=== PATIENT | female | born 1985 | race Caucasian/White ===

== ENCOUNTER 2020-01-17 11:30 | Outpatient (CLI) | payer BC, SELFPAY ==
[2020-01-17 12:52] LABS: Hematocrit 32.7 % (37.0-47.0); Mean Corpuscular HGB Conc 30.6 g/dl (32-36); Mean Corpuscular Hemoglobin 25.6 pg (26-34); Mean Corpuscular Volume 83.8 fl (80-100); Mean Platelet Volume 9.5 fl (7.4-10.4); Platelet Count Result 347 k/mm3 (150-375)
[2020-01-17 13:07] LABS: Alanine Aminotransferase 10 U/L (4-35); Albumin Level 3.5 g/dL (3.5-5.1); Alkaline Phosphatase 88 U/L (38-126); Aspartate Amino Transferase 16 U/L (14-36); Bilirubin,Total 0.2 mg/dL (0.2-1.3); Blood Urea Nitrogen 5 mg/dL (7-17); Calcium 8.2 mg/dL (8.4-10.2); Carbon Dioxide 21 mmol/L (22-30); Chloride 107 mmol/L (98-107); Estimated Glomerular Filt Rate > 60; Glucose 91 mg/dL (65-105); Lactate Dehydrogenase 268 U/L (313-618); Potassium 3.6 mmol/L (3.4-5.0); Sodium 136 mmol/L (137-145); Uric Acid 4.4 mg/dL (2.5-7.5)
[2020-01-17 13:15] LABS: Partial Thromboplastin Time 29.4 SECONDS (22.3-36.8)
== END 2020-01-17 11:31 | disposition home or self-care (01) ==
LOC: ANHLAB 11:32
PROVIDERS: PCP Internal Medicine; Visit Provider Nurse Practitioner
DX: O13.9 Gestational [pregnancy-induced] hypertension without significant proteinuria, unspecified trimester (principal)
CPT/HCPCS: 36415; 80053; 83615; 84550; 85027; 85730

== ENCOUNTER 2020-01-21 11:37 | Outpatient (CLI) | payer BC, SELFPAY ==
[2020-01-21 12:01] LABS: Collection Time Urine 24 HOURS
[2020-01-21 12:22] LABS: Creatinine Urine 83.8 mg/dL; Patient Weight 200 Lbs; Total Protein Urine Random 13 mg/dL
[2020-01-21 12:40] LABS: Estimated Glomerular Filt Rate > 60
[2020-01-21 12:45] LABS: Creatinine Clearance Urine 199.8 ml/min (75-125); Total Protein Urine 24 Hr 208 MG/DAY (28-141); Total Volume 24 Hour Urine 1600 ml
== END 2020-01-21 11:38 | disposition home or self-care (01) ==
PROVIDERS: PCP Internal Medicine; Visit Provider Nurse Practitioner
DX: O13.9 Gestational [pregnancy-induced] hypertension without significant proteinuria, unspecified trimester (principal)
CPT/HCPCS: 36415; 81050; 82565; 82575; 84156

== ENCOUNTER 2020-04-14 14:53 | Outpatient (RCR) | payer BC, SELFPAY ==
[2020-03-17 17:20] VITALS: BP 115/61; PULSE 91
[2020-03-31 09:20] VITALS: BP 115/61; PULSE 91
[2020-04-07 10:14] VITALS: BP 139/75; PULSE 87
[2020-04-14 16:01] VITALS: BP 128/71; PULSE 81
== END 2020-04-21 11:19 | disposition home or self-care (01) ==
LOC: ANHOBOP 14:53
PROVIDERS: PCP Internal Medicine; Visit Provider Obstetrics & Gynecology Gynecology
DX: O16.3 Unspecified maternal hypertension, third trimester (principal); O24.419 Gestational diabetes mellitus in pregnancy, unspecified control; Z3A.35 35 weeks gestation of pregnancy; Z3A.36 36 weeks gestation of pregnancy; Z3A.37 37 weeks gestation of pregnancy; Z3A.38 38 weeks gestation of pregnancy; Z3A.39 39 weeks gestation of pregnancy
CPT/HCPCS: 59025

== ENCOUNTER 2020-04-20 13:06 | Outpatient (CLI) | payer BC, SELFPAY ==
[2020-04-20 13:26] LABS: Basophils Percent Auto 0.1 % (0.2-1.2); Eosinophils Absolute Auto 0.1 K/mm3 (0-0.3); Eosinophils Percent Auto 0.7 % (0-4.4); Hemoglobin 11.4 g/dL (12.0-15.0); Immature Granulocyte Absolute 0.02 K/mm3 (0.00-0.031); Immature Granulocyte Percent A 0.2 % (0-0.5); Lymphocytes Absolute Auto 1.49 K/mm3 (0.9-3.2); Lymphocytes Percent Auto 17.8 % (18.3-44.2); Mean Corpuscular HGB Conc 31.7 g/dl (32-36); Mean Corpuscular Hemoglobin 26.3 pg (26-34); Mean Corpuscular Volume 82.9 fl (80-100); Monocytes Absolute Auto 0.4 K/mm3 (0.1-0.6); Neutrophils Absolute Auto 6.4 K/mm3 (1.3-6.7); Neutrophils Percent Auto 76.2 % (45.5-73.1); Platelet Count Result 276 k/mm3 (150-375); Red Blood Count 4.34 M/mm3 (4.2-5.4); Red Cell Distribution Width 16.1 % (11.5-14.5); White Blood Count 8.4 K/mm3 (4.5-10.0)
[2020-04-21 09:14] LABS: Rapid Plasma Reagin Non-Reactive (NonReactive)
== END 2020-04-20 13:07 | disposition home or self-care (01) ==
LOC: ANHOBOP 13:09
PROVIDERS: PCP Internal Medicine; Visit Provider Obstetrics & Gynecology Gynecology
DX: Z34.93 Encounter for supervision of normal pregnancy, unspecified, third trimester (principal); Z3A.00 Weeks of gestation of pregnancy not specified
CPT/HCPCS: 36415; 85025; 86592; 86850; 86900; 86901

== ENCOUNTER 2020-04-21 09:56 | Inpatient (IN) | payer BC, SELFPAY ==
[2020-04-21] VITALS (48 sets, daily range): BP systolic 102–138; BP diastolic 58–78; PULSE 69–89; RESP 13–18; TEMP 36.5–37.2; O2SAT 95–100; BMI 32.1
--- NOTE | 2020-04-21 10:40 | PM.IMHP ---
H&P: HPI History of Present Illness Chief complaint: Section Narrative: Estelle Alexander is a 34 year old female at 39 wks here for repeat csection. Pregancy conceived with IVF with . Patient complicated by GDMA2 and CHTN. Due to AMA she had MFM u/s for anatomy which was normal. They followed growth and fluid as well and has been elevated growth at 85%. Patient declines trial of labor. labs: B+, RPR -, HBSAg -, Rubella Immune, HIV -, GBS -. [facility] Past Medical History Medical History (Updated 04/21/20 @ 10:46 by Tiara Lay MD) Migraine PCOS (polycystic ovarian syndrome) Social History Social History (Updated 04/14/20 @ 15:21 by Sandra Welsh RN) Smoking status: Never smoker Second hand tobacco smoke exposure: No Alcohol intake: never Substance use: never Substance use type: does not use Gender identity (if verbalized by the patient): Female Sexual Orientation (if Verbalized by the Patient): Straight or Heterosexual Spiritual care concerns: No Agree to blood products: Yes Meds Home Medications and Allergies Allergies Allergy/AdvReac Type Severity Reaction Status Date / Time Penicillins Allergy Unknown Rash Verified 04/14/20 15:19 Exam Const: General: healthy appearing and alert Orientation/consciousness: patient oriented x3 Resp: Effort & Inspection: normal respiratory effort Auscultation: clear to auscultation bilaterally Cardio: Rate: regular rate Rhythm: regular rhythm GI: GI Palp: Yes Soft to palpation, No Tenderness to palpation present (GI) and No Palpable mass present : External Female Exam: normal external appearance Speculum Exam - Vagina: normal appearance of the vagina and normal vaginal discharge Speculum Exam - Cervix: normal appearance of the cervix Bimanual exam- vagina & uterus: uterine size normal and consistency normal Bimanual Exam- Adnexa, other: normal adnexae and No adnexal tenderness Neuro: General: patient oriented x3 Assessment and Plan Assessment and plan (1) 39 weeks gestation of : Code(s): Z3A.39 - 39 weeks gestation of Status: Acute Assessment and Plan: Plan repeat LTCS (2) S/P : Code(s): Z98.891 - History of uterine scar from previous surgery Status: Acute (3) HTN in , chronic: Code(s): O10.919 - Unspecified pre-existing hypertension complicating , unspecified trimester Status: Acute (4) GDM, class A2: Code(s): O24.419 - Gestational diabetes mellitus in , unspecified control Status: Acute
[2020-04-21] MEDS: LACTATED RINGERS 1,000 ML 125 ML IV CONT (10:48)
--- NOTE | 2020-04-21 10:59 | WPDANESEPPF ---
Anes - Initial Pre Proc Eval Procedure: Operation Date: 04/21/20 12:00 Proposed Procedures p Repeat Section - Tiara Lay MD Date/Time: 04/21/20 10:59 Surgeon: Tiara Lay MD Pre Op Diagnosis: Section Patient Data Age: 34 Gender: F Height: Weight: Allergies Allergy/AdvReac Type Severity Reaction Status Date / Time Penicillins Allergy Unknown Rash Verified 04/14/20 15:19 Patient hx anesthesia problems: none Family hx anesthesia problems: none PMFSH Past Medical History Medical History (Updated 04/21/20 @ 10:46 by Tiara Lay MD) Migraine PCOS (polycystic ovarian syndrome) Social History Social History (Updated 04/14/20 @ 15:21 by Sandra Welsh RN) Smoking status: Never smoker Second hand tobacco smoke exposure: No Alcohol intake: never Substance use: never Substance use type: does not use Gender identity (if verbalized by the patient): Female Sexual Orientation (if Verbalized by the Patient): Straight or Heterosexual Spiritual care concerns: No Agree to blood products: Yes Anes - Eval Final PreProcedure Day of Procedure 04/21/20 10:59 Patient weight: overweight Heart: regular rate and rhythm Lungs: clear to auscultation and normal air movement Airway: Mallampati scale class II Neurological: alert and oriented Last oral intake: >/= 8 hours ASA classification: II Emergent: no Anesthetic plan: proceed Anesthesia type and monitoring: regional spinal Informed Consent: The patient's anesthetic plan and its attendant risks and benefits were discussed with the patient/family/POA. Questions were solicited and answers provided to the satisfaction of the patient/family/POA.
--- NOTE | 2020-04-21 11:03 | LDADM ---
This patient, Estelle Alexander, was admitted to OB Post 115 on 04/21/20 at 09:56. Plans for labor, pain management and were discussed with patient. Patient/family oriented to hospital policies and general routines including ID bracelet, bed and alarms, visiting hours, pain management, procedures, bathroom and other care routines, personal items, smoking policy, room service/diet and guest tray routines, infant security routines, and visiting hours. Patient/Family are encouraged to report perceived risks to care and to ask questions if they do not understand what they are told or what they should do. See OBIX for further documentation.
[2020-04-21] MEDS: LACTATED RINGERS 1,000 ML 999 ML IV CONT (11:34)
[2020-04-21] MEDS: ceFAZolin 2 GM/D5W 50 ML 2 GM/50 ML BAG IVPB (11:46)
--- NOTE | 2020-04-21 12:39 | PM.OP ---
Procedure Note - Brief Procedure Note - Brief Date of procedure: 04/21/20 Pre-op diagnosis: Section IUP 39 wks CHTN GDMA2 Prior csection Post-op diagnosis: same Procedure performed: Repeat LTCS Anesthesia: spinal Surgeon: Tiara Lay MD Estimated blood loss (mL): 205 Drains: Yes (braden) Packing: No Pathology: none sent Complications: No immediate complications Condition: stable Disposition: PACU Findings: nuchal cord x 1; female weighing 7#14oz with 7/9 Apgars;normal appearing tubes, ovaries, and uterus
--- NOTE | 2020-04-21 12:41 | PM.OBDSVD ---
DS: Admitting Diagnosis Admitting Diagnosis Admitting Diagnosis: 39 weeks gestation of CHTN GDMA2 Prior Csection OB - DS: Summary OB Procedures : NST and Ultrasound OB Procedures Intrapartum: OB Procedures: : None Peripartum Data Infant Delivery Method: Section Procedures: Procedures Operation Date: 04/21/20 12:00 <No data on this case meets the specified criteria> complications: none Status at Discharge Functional status at discharge: independent ambulation Overall status at discharge: patient is progressing back to baseline Time Spent with Patient Time attestation: Total time spent providing and/or coordinating discharge services: Discharge Plan Discharge Attending physician on discharge: Tiara Lay Discharging Clinician: Tiara Lay Anticipated Discharge Date/Time: 04/24/20 07:48 Patient Disposition: Home, Self-Care Activity: may shower, may drive after 2 weeks and pelvic rest Diet: regular Wound Care Instructions: incision open to air Patient Instructions: Antibiotic Form Stand Alone Forms: General Discharge Information Follow-up/Referrals: Tiara Lay MD [Physician] - 1 Week Discharge Medications: New ibuprofen 600 mg Tablet 600 mg PO Q6H PRN (Reason: Cramping) Qty: 30 RF: 0 Continued metformin 500 mg tablet extended release 24 hr 500 mg PO RF: 0 No Action Humulin N NPH U-100 Insulin 100 unit/mL suspension 12 unit SUBCUT HS RF: 0 Date of admission: 04/21/20 09:56 Primary Care Provider: Avelino Goodwin Admitting Provider: Tiara Lay Attending physician on admission: Tiara Lay Condition: Stable
[2020-04-21] MEDS: OXYTOCIN 30 UNITS/NS 500 ML 30 UNITS/500 ML BAG 125 UNITS (14:38)
--- NOTE | 2020-04-21 14:53 | OP_ITS ---
DATE OF PROCEDURE: 04/21/2020 PREOPERATIVE DIAGNOSES: 1. Previous section, intrauterine at 39 weeks. 2. Gestational diabetes, insulin requiring. 3. Chronic hypertension. POSTOPERATIVE DIAGNOSES: 1. Previous section, intrauterine at 39 weeks. 2. Gestational diabetes, insulin requiring. 3. Chronic hypertension. PROCEDURE: Repeat low-transverse section. ANESTHESIA: Spinal. FINDINGS: Female , 7 pounds 14 ounces with Apgars of 7 at 1 minute 9 at 5 minutes. There was a nuchal cord x1. Tubes, ovaries, and uterus appeared grossly normal. ESTIMATED BLOOD LOSS: 205 cc. PATHOLOGY: None. DESCRIPTION OF PROCEDURE: The patient was taken to the operating room, placed under anesthesia, prepped and draped in usual sterile fashion in the dorsal supine position with a leftward tilt. Once anesthesia was deemed adequate, she was prepped and draped in the usual sterile fashion. A Pfannenstiel skin incision was made through the prior incision and carried down to the underlying layer of fascia, which was nicked in the midline and extended laterally using Calabrese scissors. Ochsner was used to tent the fascia, which was then dissected off using sharp dissection due to dense adhesions. The rectus muscles were in the midline. The peritoneum was entered during this process. The peritoneum was extended with blunt traction. The abdomen was palpated, no scar tissue was noted. The Oswaldo O retractor was placed. The vesicouterine peritoneum was tented, entered with Metzenbaums, extended laterally. The bladder flap created digitally. The lower uterine segment was incised in a transverse fashion with a scalpel and extended laterally using blunt traction. Membranes were ruptured. Clear fluid was noted. The 's head was delivered through the incision while the retail loan originator assistant applied fundal pressure. The remainder of the infant is delivered. The cord was de-tangled, clamped, and cut. The was handed to the waiting nursery nurse. The placenta was removed using manual traction. The uterus was cleared of all clots and debris. The uterine incision was closed using 0 Monocryl in a running locked fashion. Same suture was used to imbricate. Good hemostasis was noted. The cul-de-sac and gutters were irrigated. The incision was again inspected and noted to be hemostatic. The Oswaldo O retractor was removed. The fascia was closed using 0 Vicryl in a running fashion. Subcutaneous tissues were irrigated and made hemostatic using Bovie cautery. Skin was closed using 4-0 Vicryl in a subcuticular fashion. DermaFlex was placed over the incision. The patient was taken to Recovery in stable condition. Oly I MT: Reginaldo
[2020-04-21] MEDS: KETOROLAC 30 MG/ML VIAL (*BKC) IV PUSH ×2 (15:34→22:43)
--- NOTE | 2020-04-21 16:37 | OBPPTRN ---
Patient transferred to post room #292 via stretcher. Support person present. Oriented to unit, room, information board, rooming in, admission packet and security measures. Patient verbalizes understanding.
[2020-04-21] MEDS: DEXTROSE 5%/0.45% SOD CHL 1,000 ML 125 ML IV CONT (19:04)
[2020-04-22] MEDS: KCL 20 MEQ/D5/0.45% SOD CHL 1,000 ML 125 ML IV CONT (03:02)
[2020-04-22 04:15] VITALS: BP 127/86; PULSE 79; RESP 18; TEMP 37.2; O2SAT 100
[2020-04-22 04:50] VITALS: BP 126/58; PULSE 73; RESP 18; TEMP 37.1; O2SAT 98
[2020-04-22 05:43] LABS: Basophils Percent Auto 0.3 % (0.2-1.2); Eosinophils Absolute Auto 0.1 K/mm3 (0-0.3); Hematocrit 30.3 % (37.0-47.0); Hemoglobin 9.7 g/dL (12.0-15.0); Immature Granulocyte Absolute 0.02 K/mm3 (0.00-0.031); Immature Granulocyte Percent A 0.3 % (0-0.5); Lymphocytes Absolute Auto 1.79 K/mm3 (0.9-3.2); Mean Corpuscular Hemoglobin 26.7 pg (26-34); Mean Corpuscular Volume 83.5 fl (80-100); Mean Platelet Volume 10.2 fl (7.4-10.4); Monocytes Absolute Auto 0.4 K/mm3 (0.1-0.6); Neutrophils Absolute Auto 4.9 K/mm3 (1.3-6.7); Neutrophils Percent Auto 68.4 % (45.5-73.1); Platelet Count Result 234 k/mm3 (150-375); Red Blood Count 3.63 M/mm3 (4.2-5.4); Red Cell Distribution Width 16.3 % (11.5-14.5); White Blood Count 7.2 K/mm3 (4.5-10.0)
--- NOTE | 2020-04-22 07:47 | P.PNOB_ITS ---
OB - PN: Subj Subjective Date/time seen: 04/22/20 07:47 Patient comments: no complaints and pain well controlled baby status: doing well OB - PN: Obj Data Labs CBC & Chem 7: 04/22/20 04:42 Labs: Laboratory Results - last 24 hr 04/22/20 04:42 WBC 7.2 RBC 3.63 L Hgb 9.7 L Hct 30.3 L MCV 83.5 MCH 26.7 MCHC 32.0 RDW 16.3 H Plt Count 234 MPV 10.2 Immature Gran % (Auto) 0.3 Neut % (Auto) 68.4 Lymph % (Auto) 25.0 Dickenson % (Auto) 5.0 Eos % (Auto) 1.0 Baso % (Auto) 0.3 Lymph # (Auto) 1.79 Dickenson # (Auto) 0.4 Eos # (Auto) 0.1 Baso # (Auto) 0.0 Abs Immat Gran (auto) 0.02 Absolute Neuts (auto) 4.9 Absolute Nucleated RBC 0.0 Nucleated RBC % 0.0 OB - PN A/P Assessment and Plan (1) delivery delivered: Code(s): O82 - Encounter for delivery without indication Status: Acute Assessment and Plan: Doing well. Continue care. Time Spent With Patient Time: Total time spent is greater than 50% in coordination of care (as documented) at patient's floor/unit and/or counseling patient: Exam : Bimanual exam- vagina & uterus: other (Uterus firm, nt @U) Other: inc c/d/i
--- NOTE | 2020-04-22 07:56 | WPDANLDNPN2 ---
Anes-Prog Note L&D-Neuraxial Date/Time: 04/22/20 07:56 Neuraxial medications: intrathecal PF morphine Opiod-related complaints: none Patient feedback: Patient satisfied with post-operative pain management.
--- NOTE | 2020-04-22 07:56 | WPDANLDPN2 ---
Anes-Prog Note L&D Date/Time: 04/22/20 07:56 Comfortable throughout: section Neuraxial method: spinal Epidural/Spinal procedure site: clean & non-tender Neuro status: Neuro function grossly intact. Cardiovascular status: normal Respiratory status: normal Airway patency: baseline Mental status: baseline Post-Op hydration status: normal Vital Signs: Last Vital Signs Temp 37.1 C 04/22/20 04:50 Pulse 73 04/22/20 04:50 Resp 18 04/22/20 04:50 BP 126/58 L 04/22/20 04:50 Pulse Ox 98 04/22/20 04:50 I/O: Intake & Output 04/21/20 04/21/20 04/22/20 15:59 23:59 07:59 Intake Total 2050 310 440 Output Total 915 288 4884 Balance 1624 85 -985 Post-procedural complaints: none Patient feedback: Patient satisfied with anesthetic care.
[2020-04-22 08:50] VITALS: BP 119/69; PULSE 75; RESP 16; TEMP 37.3; O2SAT 99
[2020-04-22] MEDS: metFORMIN HCL XR 500 MG TAB.SR.24H PO ×2 (09:11→18:46)
[2020-04-22] MEDS: MULTIVIT/MIN/PREN/FOL AC/IRON TABLET 1 TAB PO (09:11)
[2020-04-22] MEDS: POLYSACCHARIDE IRON COMPLEX 150 MG CAPSULE PO ×2 (09:13→18:46)
[2020-04-22] MEDS: LANOLIN (LANSINOH) 7.5 GM CREAM 1 APPLIC TOPICAL (09:14)
[2020-04-22] MEDS: DOCUSATE SODIUM 100 MG CAPSULE PO ×2 (09:14→18:46)
--- NOTE | 2020-04-22 11:20 | PC.NURSE ---
Consulted with patient, mother reports infant fed well during the night. Mother put to breast independently, was latched deeply, nursing eagerly with steady draws and frequent swallowing. Reviewed signs of a correct latch, effective nursing and suck swallow ratio. Infant was able to maintain latch without discomfort to mother. Nipple care reviewed. Suggested to stimulate during entire feeding to keep infant awake and feeding effectively for increased intake and assist maintaining deep latch. Instructed mother to call out for RN assistance if she is unable to latch infant for feeding or she has discomfort with nursing. Instructed feeding should be initiated three hours from start of last feeding or if feeding cues are noted before. Mother voiced understanding of information shared.
[2020-04-22 11:25] VITALS: BP 125/72; PULSE 76; RESP 18; TEMP 37.4; O2SAT 93
[2020-04-22] MEDS: IBUPROFEN 600 MG TABLET PO (14:22)
[2020-04-22 20:30] VITALS: BP 135/65; PULSE 71; RESP 18; TEMP 36.9; O2SAT 99
[2020-04-23] MEDS: IBUPROFEN 600 MG TABLET PO ×3 (00:39→17:08)
[2020-04-23] MEDS: DOCUSATE SODIUM 100 MG CAPSULE PO ×3 (09:14→17:08)
[2020-04-23] MEDS: MULTIVIT/MIN/PREN/FOL AC/IRON TABLET 1 TAB PO (09:14)
[2020-04-23] MEDS: POLYSACCHARIDE IRON COMPLEX 150 MG CAPSULE PO ×2 (09:15→17:08)
[2020-04-23] MEDS: metFORMIN HCL XR 500 MG TAB.SR.24H PO ×2 (09:15→17:08)
[2020-04-23 09:20] VITALS: BP 130/71; PULSE 70; RESP 16; TEMP 37.1; O2SAT 100
--- NOTE | 2020-04-23 09:43 | PM.OBPNVD ---
OB - PN: Subj Subjective Date/time seen: 04/23/20 09:43 doing well no complaints OB - PN: Obj Data Labs CBC & Chem 7: 04/22/20 04:42 OB - PN A/P Assessment and Plan (1) delivery delivered: Code(s): O82 - Encounter for delivery without indication Status: Acute Assessment and Plan: continue with pp care. Time Spent With Patient Time: Total time spent is greater than 50% in coordination of care (as documented) at patient's floor/unit and/or counseling patient: Exam GI: Other: incsion clean and dry
--- NOTE | 2020-04-23 12:30 | PC.NURSE ---
Upon entering mother has to breast using correct positioning/alignment in cross cradle, Infant was latched slightly shallow. Mother denies discomfort with feeding. Discussed deep latch may increase infant intake. Infant nursed eagerly, with steady draws and frequent swallowing noted. Reviewed signs of a correct latch, effective nursing and suck swallow ratio. Infant was able to maintain latch without discomfort to mother. Nipple care reviewed. Mother stimulated infant when pausing noted. Instructed mother to call out for RN assistance if she is unable to latch infant for feeding or she has discomfort with nursing. Instructed feeding should be initiated three hours from start of last feeding or if feeding cues are noted before. Mother voiced understanding of information shared.
[2020-04-23 20:30] VITALS: BP 133/72; PULSE 70; RESP 18; TEMP 36.6; O2SAT 98
[2020-04-24] MEDS: IBUPROFEN 600 MG TABLET PO (04:14)
--- NOTE | 2020-04-24 07:47 | P.PNOB_ITS ---
OB - PN: Subj Subjective Date/time seen: 04/24/20 07:47 Patient comments: no complaints, pain well controlled and tolerating diet [place] baby status: doing well OB - PN: Obj Data Labs CBC & Chem 7: 04/22/20 04:42 OB - PN A/P Plan day: 3 Plan: routine care and discharge home Time Spent With Patient Time: Total time spent is greater than 50% in coordination of care (as documented) at patient's floor/unit and/or counseling patient: Exam GI: Other: Inc c/d/i : Bimanual exam- vagina & uterus: other (Uterus firm, nt @U)
[2020-04-24] MEDS: metFORMIN HCL XR 500 MG TAB.SR.24H PO (08:26)
[2020-04-24] MEDS: POLYSACCHARIDE IRON COMPLEX 150 MG CAPSULE PO (08:26)
[2020-04-24] MEDS: MEASLES,MUMPS,RUBELLA VACCINE 0.5 ML VIAL SUB-Q (08:27)
[2020-04-24] MEDS: DOCUSATE SODIUM 100 MG CAPSULE PO (08:27)
[2020-04-24] MEDS: MULTIVIT/MIN/PREN/FOL AC/IRON TABLET 1 TAB PO (08:27)
[2020-04-24 09:05] VITALS: BP 127/81; PULSE 64; RESP 16; TEMP 37.4; O2SAT 99
--- NOTE | 2020-04-24 09:30 | PC.NURSE ---
Mother is able to independently latch infant with appropriate positioning/alignment. She denies any nipple discomfort, is feeding as required and waking to feed if needed. has had at least 8 effective feedings in the past 24 hours, and is currently meeting outcomes for weight at 9%, output, jaundice and feeding frequencies. Advised to stimulate while at breast for increased intake due to weight. Discussed supplementation if infant does not have required output or goes past 5 hours without feeding. Mother states she feels confident to continue effective at home. Reviewed transition to breast milk, signs of adequate intake, and engorgement/relief. Instructed to call ICP if intake/output less than required. Reviewed regular medications mother is taking. Information provided per Kimberlee. Reviewed community resources on the [facility] website and in the Mom/Baby guide. Information on outpatient services provided. Mother has no further questions at this time.
[2020-04-26 11:23] VITALS: BP 138/78; PULSE 87; RESP 22; TEMP 36.3; O2SAT 100
== END 2020-04-24 14:04 | disposition home or self-care (01) | DRG 787 ==
LOC: ANHOBPP 12:43 → ANHOB2 15:37
PROVIDERS: Admitting Provider Obstetrics & Gynecology Gynecology; PCP Internal Medicine; Visit Provider Obstetrics & Gynecology Gynecology
PROC: 10D00Z1 Extraction of Products of Conception, Low, Open Approach (ICD-10-PCS; CPT 59514; principal; 2020-04-21 12:00)
DX: O34.211 Maternal care for low transverse scar from previous cesarean delivery (principal); O10.92 Unspecified pre-existing hypertension complicating childbirth; Z37.0 Single live birth; Z3A.39 39 weeks gestation of pregnancy; O99.284 Endocrine, nutritional and metabolic diseases complicating childbirth; E28.2 Polycystic ovarian syndrome; O24.424 Gestational diabetes mellitus in childbirth, insulin controlled; O69.81X0 Labor and delivery complicated by cord around neck, without compression, not applicable or unspecified
CPT/HCPCS: 36415; 85025; 86592; 86850; 86900; 86901; 90710; A9270; J0131; J0690; J1885; J2274; J2590; J3480; J7120

== ENCOUNTER → 2021-11-27 13:17 | Outpatient (CLI) | payer BC, SELFPAY ==
--- NOTE | ~2021-11-27 | US_ITS ---
US thyroid DATE: 11/27/2021 13:31 INDICATION: Enlarged thyroid examination on physical examination TECHNIQUE: Real-time imaging and color flow imaging of the thyroid gland COMPARISON: 05/16/2014 thyroid ultrasound examination FINDINGS: The right lobe of thyroid gland measures 6 cm height, up to 1.55 cm AP and 1.5 cm cm transv erse dimension. The left lobe measures up to 5.6 cm height,, 1.3 cm anteroposterior and 1.7 cm transverse dimension. The isthmus measures up to 3 mm AP dimension. There is symmetric and relatively homogeneous echotexture of the thyroid gland. A 3.4 mm cyst is note d in the upper pole of the right lobe. IMPRESSION: TR 1 benign thyroid ultrasound examination Reviewed, dictated and finalized at [facility]. Reviewed, dictated and finalized at location A. RETTE MACHINES MECHANIC
== END ==
PROVIDERS: Visit Provider Nurse Practitioner
DX: E07.9 Disorder of thyroid, unspecified (principal)
CPT/HCPCS: 76536

== ENCOUNTER → 2022-12-16 11:13 | Outpatient (CLI) | payer BC, SELFPAY ==
--- NOTE | ~2022-12-16 | US_ITS ---
EXAMINATION: US thyroid DATE: 12/16/2022 11:31 INDICATION: Goiter. Thyroid nodule. TECHNIQUE: Multiple ultrasound images of the thyroid were obtained. COMPARISON: 11/27/2021 FINDINGS: The right thyroid lobe measures 5.6 x 1.7 x 1.7 cm. The left thyroid lobe measures 5.2 x 1.6 x 1.8 c m. The thyroid Isthmus measures 3 mm in thickness. Unchanged 3 mm hypoechoic nodule, too small to def initively characterize but regardless below threshold for either follow-up or biopsy. There is normal echotexture, echogenicity and vascular flow throughout the thyroid gland. IMPRESSION: 1. Likely benign 3 mm right thyroid nodule which is below size threshold for either biopsy or follow- up. Reviewed, dictated and finalized at location D. EKEEPING LEAD IMPRESSION: 1. Likely benign 3 mm right thyroid nodule which is below size threshold for ei ther biopsy or follow-up.
== END ==
PROVIDERS: PCP Internal Medicine Endocrinology, Diabetes & Metabolism; Visit Provider Internal Medicine Endocrinology, Diabetes & Metabolism
DX: E04.9 Nontoxic goiter, unspecified (principal)
CPT/HCPCS: 76536

== ENCOUNTER → 2023-10-10 13:36 | Outpatient (CLI) | payer BC, SELFPAY ==
--- NOTE | ~2023-10-10 | MM_ITS ---
EXAMINATION: MM screening [facility] w jadyn HISTORY: Screening TECHNIQUE: Craniocaudal and mediolateral oblique 3-D tomosynthesis images were obtained and synthetic 2-D images were generated. CAD analysis was submitted and interpreted. COMPARISON: No prior mammogram is available for comparison at this institution. BREAST PARENCHYMAL COMPOSITION: There are scattered areas of fibroglandular density. FINDINGS: There is no evidence of suspicious mass, calcification, or architectural distortion to sugg est malignancy in either breast. There has been no suspicious interval change. IMPRESSION: 1. No mammographic evidence of malignancy. 2. Recommend routine screening mammography in one year. BI-RADS Category 1: Negative Reviewed, dictated and finalized at location A. EO EQUIPMENT INSTALLER
== END ==
PROVIDERS: PCP Obstetrics & Gynecology Gynecology; Visit Provider Obstetrics & Gynecology Gynecology
DX: Z12.31 Encounter for screening mammogram for malignant neoplasm of breast (principal)
CPT/HCPCS: 77063; 77067

== ENCOUNTER 2024-10-11 13:03 | Outpatient (CLI) | payer BC, SELFPAY ==
--- NOTE | ~2024-10-11 | MM_ITS ---
EXAMINATION: MM screening [facility] w jadyn HISTORY: Screening TECHNIQUE: Craniocaudal and mediolateral oblique 3-D tomosynthesis images were obtained and synthetic 2-D images were generated. CAD analysis was submitted and interpreted. COMPARISON: 10/10/2023 BREAST PARENCHYMAL COMPOSITION: Not dense: There are scattered areas of fibroglandular density. FINDINGS: There is no evidence of suspicious mass, calcification, or architectural distortion to sugg est malignancy in either breast. There has been no suspicious interval change. IMPRESSION: 1. No mammographic evidence of malignancy. 2. Recommend routine screening mammography in one year. BI-RADS Category 1: Negative Reviewed, dictated and finalized at location B. FOLIO MGR
== END 2024-10-11 13:04 | disposition home or self-care (01) ==
LOC: MICIMG 13:03
PROVIDERS: PCP Nurse Practitioner; Visit Provider Nurse Practitioner
DX: Z12.31 Encounter for screening mammogram for malignant neoplasm of breast (principal)
CPT/HCPCS: 77063; 77067

== ENCOUNTER 2025-10-17 12:50 | Outpatient (CLI) | payer BC, SELFPAY ==
--- NOTE | ~2025-10-17 | MM_ITS ---
EXAMINATION: MM screening [facility] BI w jadyn HISTORY: Screening TECHNIQUE: Craniocaudal and mediolateral oblique 3-D tomosynthesis images were obtained and synthetic 2-D images were generated. CAD analysis was submitted and interpreted. COMPARISON: Comparison to multiple prior studies sequentially, with oldest reviewed study dated 10/10/2023. BREAST PARENCHYMAL COMPOSITION: Not dense: There are scattered areas of fibroglandular density. FINDINGS: There is no evidence of suspicious mass, calcification, or architectural distortion to suggest malignancy in either breast. There has been no suspicious interval change. IMPRESSION: 1. No mammographic evidence of malignancy. 2. Recommend routine screening mammography in one year. BI-RADS Category 1: Negative Reviewed, dictated and finalized at location O. ARCH AND INSIGHTS EXECUTIVE
== END 2025-10-17 12:51 | disposition home or self-care (01) ==
PROVIDERS: PCP Nurse Practitioner; Visit Provider Nurse Practitioner
DX: Z12.31 Encounter for screening mammogram for malignant neoplasm of breast (principal)
CPT/HCPCS: 77063; 77067

== ENCOUNTER 2025-10-30 13:47 | Emergency (ER) | payer BC, SELFPAY ==
[2025-10-30 14:18] VITALS: BP 162/82; PULSE 90; RESP 16; TEMP 36.9; O2SAT 100
[2025-10-30 14:32] LABS: EDCOVIDSCREEN Negative (Negative); EDINFLUASCREEN Negative (Negative); EDINFLUBSCREEN Negative (Negative); EDSTREPNEGPOS1 Negative (Negative)
--- NOTE | 2025-10-30 14:48 | ED.URI ---
HPI - URI/Sore Throat General Chief Complaint: Upper Respiratory Infection Stated Complaint: flu/strep testing Time Seen by Provider: 10/30/25 14:48 Source: patient Mode of arrival: ambulatory Limitations: no limitations History of Present Illness HPI Narrative: 40-year-old female presents with cough, congestion, fatigue, body aches for 3 days. Patient exposed to strep throat and influenza a by her children. No nausea vomiting diarrhea. All systems reviewed and negative except as noted above. Related Data Home Medications ?Medication ?Instructions ?Recorded ?Confirmed ?Last Taken ?Type metformin 500 mg tablet,extended 500 mg PO BID 04/21/20 10/30/25 04/20/20 History release 24 hr ergocalciferol (vitamin D2) 1,250 1,250 mcg PO WEEKLY 10/30/25 10/30/25 Unknown History mcg (50,000 unit) capsule (Vitamin D2) Allergies Allergy/AdvReac Type Severity Reaction Status Date / Time Penicillins Allergy Unknown Rash Verified 10/30/25 14:12 [facility] Past Medical History Medical History (Updated 10/30/25 @ 14:54 by Ruby Lam APRN) Migraine PCOS (polycystic ovarian syndrome) Family History Family History Mother Family history of thyroid disease Hypertension Father Diabetes mellitus Family history of mental disorder Hypertension Grandparent Acute myocardial infarction Cerebrovascular accident Social History Social History (Updated 04/14/20 @ 15:21 by Sandra Welsh RN) Smoking status: Never smoker Second hand tobacco smoke exposure: No Alcohol intake: never Substance use: never Substance use type: does not use Living arrangements: with family Occupation/Education: unemployed Gender identity (if verbalized by the patient): Female Sexual Orientation (if Verbalized by the Patient): Straight or Heterosexual Spiritual care concerns: No Agree to blood products: Yes Comments At time of signature, agree with nursing past medical, surgical, social and family history. There is no relevant family history pertinent to the presenting complaint. Exam Narrative: GENERAL: This is a well-nourished, well-developed patient, Ill-appearing but no acute distress HEAD: normocephalic, atraumatic. EYES: PERRL. Sclera clear/white. Vision is grossly intact. EARS: External ears normal, auditory canals clear and without drainage, TMs normal without perforation. Hearing grossly intact. NOSE: External nose normal with no obvious nasal discharge, nares without redness, no rhinorrhea. THROAT: Mucous membranes moist, posterior pharynx clear. NECK: Neck supple, non-tender without lymphadenopathy, masses or thyromegaly. CARDIOVASCULAR: Regular rate and rhythm without murmurs, gallops, or rubs. RESPIRATORY: Clear to auscultation. Breath sounds equal bilaterally. No wheezes, rales, or rhonchi. SKIN: warm, Dry, intact with no suspicious lesions or rash, good texture and turgor. NEURO: awake, alert, and oriented to person, place and time. There were no obvious focal neurologic abnormalities. EXTREMITIES: No joint tenderness, effusion, or edema noted. Course Course Level of Care: Express Care Visit Vital Signs Vital signs: Vital Signs Temperature 36.9 C 10/30/25 14:18 Pulse Rate 90 10/30/25 14:18 Respiratory Rate 16 10/30/25 14:18 Blood Pressure 162/82 H 10/30/25 14:18 Pulse Oximetry 100 10/30/25 14:18 Temperature 36.9 C 10/30/25 14:18 Pulse Rate 90 10/30/25 14:18 Respiratory Rate 16 10/30/25 14:18 Blood Pressure 162/82 H 10/30/25 14:18 Pulse Oximetry 100 10/30/25 14:18 reviewed MDM MDM Narrative Medical decision making narrative: negative COVID, influenza and strep. Strep culture pending. Recommend [id number] medications to treat viral symptoms. Patient is well-appearing, nontoxic. Differential Diagnosis Differential Diagnosis: Differential diagnostic considerations for upper respiratory infection include upper respiratory infection, croup, otitis media, sinusitis, viral infection, bronchitis, influenza, pharyngitis, strep, uvulitis.? Lab Data Labs: Lab Results 10/30/25 Range/Units 14:31 POC Influenza A Ag Negative (Negative) POC Influenza B Ag Negative (Negative) POC SARS CoV-2 Ag Negative (Negative) POC Grp A Strep Screen Negative (Negative) Discharge Plan Discharge Clinical Impression: Acute viral syndrome Patient Disposition: Home Condition: Stable Instructions: Viral Syndrome (ED) Additional Instructions: your strep, COVID and influenza test were negative. A strep culture was ordered and results will take 48-72 hours. If your strep culture is positive we will call you at that time and prescribed an antibiotic. Continue taking [id number] medication to treat her symptoms such as DayQuil NyQuil cold and flu. Take as directed on packaging. Drink plenty of water and rest. See your doctor if not improving. Patient Language: Irish Prescriptions: No Action ergocalciferol (vitamin D2) [Vitamin D2] 1,250 mcg (50,000 unit) capsule 1,250 mcg PO WEEKLY metformin 500 mg tablet extended release 24 hr 500 mg PO BID ibuprofen 600 mg Tablet 600 mg PO Q6H PRN (Reason: Cramping) Qty: 30 0RF Follow-up/Referrals: PHYSICIAN,CARE MANAGER CNA [Primary Care Provider, Internal Medicine] Time of Disposition: 14:54
== END 2025-10-30 14:59 | disposition home or self-care (01) ==
PROVIDERS: Emergency Provider Nurse Practitioner Family
DX: B34.9 Viral infection, unspecified (principal); Z20.822 Contact with and (suspected) exposure to COVID-19; E28.2 Polycystic ovarian syndrome
CPT/HCPCS: 87081; 87426; 87804; 87880; 99213; G0463